=== PATIENT | female | born 1990 | race Caucasian/White ===

== ENCOUNTER 2016-04-30 23:52 | Inpatient (IN) | payer OTHER ==
[~2016-04-30] VITALS: Ht 167.6 cm; Wt 89.8 kg
[2016-05-01] MEDS ORDERED: Lactated Ringer's 1,000 ML IV PRN (19:28)
[2016-05-01] MEDS ORDERED: Hemorrhage Kit, Post Partum XX ONE (19:30)
[2016-05-01] MEDS ORDERED: diphenhydrAMINE 50 mg Capsule PO PRN (19:30)
[2016-05-01] MEDS ORDERED: Carboprost 250 mCg/mL Inj IM PRN (19:30)
[2016-05-01] MEDS ORDERED: Sodium Chloride LOK Flush 10 mL Syringe IVFLUSH PRN (19:30)
[2016-05-01] MEDS ORDERED: Oxytocin 30 Units/500 mL LR 30 UNITS in IV Premix 1 EACH IV PRN (19:30)
[2016-05-01] MEDS ORDERED: Ondansetron 2 mg/mL 2 mL Inj IVPUSH PRN (19:30)
[2016-05-01] MEDS ORDERED: Methylergonovine 0.2 mg/mL Inj IM PRN (19:30)
[2016-05-01] MEDS ORDERED: fentaNYL-PF 50 mCg/mL 2 mL Inj IVPUSH PRN (19:30)
[2016-05-01] MEDS ORDERED: Oxytocin 10 Unit/mL Inj IM PRN (19:30)
[2016-05-01] MEDS ORDERED: Penicillin G K Inj 5,000,000 UNITS in Dextrose 5% Minibag Plus 100 ML IV ONE (19:40)
--- NOTE | 2016-05-01 20:35 | PCM.HPOB ---
Subjective Date of Service: May 01, 2016 Referring Provider: Admitting Physician: Estephania Tamayo MD Primary Care Physician: Nopcp Attending Physician: Estephania Tamayo MD Chief Complaint Post Term Induction of labor History of polysubstance abuse History of Present History of Present Illness 25yo woman, , (one elective and one spontaneous ) at 41wks 4days gestation presents for elective induction of labor for post term . Review of outpatient records shows poor care. Per outpatient record: late transfer of care at 39 weeks records not obtained except of ultrasounds. Labs repeated on 04/17/2016. history of opiate abuse Currently on Subutex 8 mg by mouth 3 times a day. The patient is aware of abstinence syndrome. Urine drug screen each visit. Polysubstance abuse PNR from [place] shows +meth, cocaine, opiates on UDS hx of ecstasy, mja and other hallucinogen use Limited [facility] [place] medical record shows no visits prior to transfer, except being seen for substance abuse issues and US Tobacco use Per [facility] record Other areas indicated 04/1010 -- no custody of P1 child born April 2015 Blood type O+ RPR and HIV Non-reactive Rubella Immune GBS POSITIVE GDM negative. OB History: Obstetrical Complications: None Past Medical History Obstetrical History: None other than stated above. Gynecologic History: None other than stated above. Medical History: Polysubstance abuse Surgical History: Denies Social History: Every day smoker. Former heroin user on Subutex Hx Tobacco Use: Yes Smoking Status: Current Every Day Smoker ("down to half a packa day") Years of Smokin Hx Alcohol Use: Yes Hx Substance Use: Yes (Heroin) Past Family History Family History "mother has heart problems from smoking" Living Arrangement: Other (with SO in apartment in Thursday) Review of Systems Constitutional: Y: Chills, Dizziness, Fever ENT: Denies: Ear Pain Cardiovascular: Denies: Chest Pain Respiratory: Denies: Cough Gastrointestinal: Denies: Abdominal Pain, Heartburn, Nausea, Vomiting Genitourinary: Denies: Dysuria Musculoskeletal: Denies: Redness Skin/Breasts: Denies: Bruising, Discharge Neurological: Denies: Dizziness Psychologic: Denies: Agitation Hematologic: Denies: Adenopathy Allergy Coded Allergies: No Known Allergies (Verified Allergy, Unknown, 04/25/16) Exam Vital Signs 127/81 115 37.1 Exam 120 baseline Mild variability Variable Decels. Objective Laying in bed, NAD Constitutional: Well-developed, Well-nourished, Normal habitus HEENT: Atraumatic, PERRLA, EOMI, Scleral Anicteric Lungs: Clear to Auscultation, Normal Air Movement Heart: Regular Rate/Rhythm, Normal S1, Normal S2, No Murmurs/Rubs/Gallops Abdomen: Gravid Lymphatic: Normal: Axilla Palpation of Nodes, Neck Palpation of Nodes Extremities: Pulses Palpable x4, Warm, No Edema Neurological/Psychiatric: Alert, Oriented X3, Cooperative Neuro: Grossly Neurologically Intact, Reflexes 2+ Labs/Diagnostics Labs Laboratory Tests 72 Hours Test 05/01/16 19:20 Urine Opiates Screen Negative Urine Methadone Screen Negative Urine Barbiturates Screen Negative Urine Amphetamines Screen Negative Urine Benzodiazepines Screen Negative Urine Cocaine Metabolite Screen Negative Urine Cannabinoids Screen Negative Maternal Blood Type: O (Positive) Antibody Screen: neg Group B Strep Results: Positive Previous with GBS: Unknown Rubella: Immune Lab History: Negative for: Hx HIV, Hx Syphilis OB Intrapartum Assessment/Plan Assessment 25yo Post term multiparous woman, otherwise healthy, clean UDS on admission with history of polysubstance abuse being treated with subutex and current every day smoker. Problems: (1) Buprenorphine maintenance treatment affecting Status: Acute ICD Code: O99.320 (2) Elective induction of labor planned Status: Acute ICD Code: [id number] (3) Post term over 40 weeks Status: Acute ICD Code: O48.0 Pain Evaluation: Adequate Pain Control Intrapartum plan Epidural when desired. GBS prophylaxis with PCN Nicoderm patches Social Work consult. CPS requesting notification due to current open case. Induction of labor Close communication with neonatology. Attending Statement The patient was seen and examined together with Dr. Davies on 05/02/2016 and I agree with the history, exam and plan as outlined in the note above. Nitesh Eng DO May 01, 2016 20:35 Estephania Tamayo MD May 09, 2016 13:46
[2016-05-01 21:36] LABS: Mean Corpuscular Hemoglobin 30.4 pg (27.0-35.0); Mean Corpuscular Volume 91.8 fL (81-100)
[2016-05-01] MEDS: Lactated Ringer's 1,000 ML IV SCH (22:04)
[2016-05-01] MEDS: Buprenorphine 2 mg SL Tablet SL SCH (22:04)
[2016-05-01] MEDS: Misoprostol 25 mCg/0.25 Tablet VAGINAL SCH (23:30)
--- NOTE | 2016-05-01 23:49 | PROG NOTE ---
[address] [address] PROGRESS NOTE PATIENT: JOSE DUNN : 1990 MR#: [id number] ADMIT: 05/01/2016 JOB ID: [id number] DATE: 05/01/2016. The patient was comfortable. Admitted by Dr. Tamayo for induction of labor due to post-dates at 40 weeks plus . Her due date is April 20, 2016, this makes her 41 weeks and 4 days today. Vital signs are 115/68 for blood pressure, respirations are 16, pulse is 90, temperature 36.8 degrees centigrade. heart tracing is showing baseline of 120 beats per minute, positive accelerations, no decelerations, moderate variability, reactive tracing. Patient consented for cervical ripening balloon. The balloon was inserted; 80 cc of normal saline injected in the uterine balloon, 80 cc of normal saline injected in the vaginal balloon. Patient tolerated the insertion well. Cervical exam before insertion showed 2 cm dilated, cervix 50% effaced, high presenting part, posterior cervix, medium consistency, with a Almonte score of 3. PLAN: 1. Cervical ripening balloon for 12 hours or until the balloon falls out, whichever is earlier. Will follow with a cervical exam and possibly Pitocin. 2. GBS cultures positive. Start GBS prophylaxis with active labor or spontaneous rupture of membranes. The above discussed with the patient who agreed to the plan. KALYAN
[2016-05-02] MEDS: Lactated Ringer's 1,000 ML IV SCH ×5 (02:20→22:18)
[2016-05-02] MEDS: Buprenorphine 2 mg SL Tablet SL SCH ×3 (06:33→22:22)
[2016-05-02] MEDS ORDERED: Oxytocin 30 Units/500 mL LR 30 UNITS in IV Premix 1 EACH IV PRN (08:00)
--- NOTE | 2016-05-02 08:00 | PCM.PNOBIP ---
Subjective Date of Service May 02, 2016 Delivery plan: Spontaneous Vaginal Delivery Visit History Patient presents for induction of labor for postterm , she is currently at 41 weeks and 5 days. She is undergoing cervical ripening and balloon has been placed with 80 mL of fluid at 11 PM last night. Subjective Patient has no complaints as of this morning, she has been able to rest well, was able to sleep overnight, states she has been up and about the room using the bathroom. She is having infrequent contractions, denies any leakage of fluid or bleeding from her vagina. Pain Management: PO pain meds Gastrointestinal: Good Appetite, No N/V, Passing Flatus Activity: Ambulating Independently Group B Strep Results: Positive Rubella: Immune Blood Type: O (Positive) RH Type: Positive Labs Laboratory Tests 05/01/16 21:20: White Blood Count 8.4, Red Blood Count 3.55, Hemoglobin 10.8, Hematocrit 32.6, Mean Corpuscular Volume 91.8, Mean Corpuscular Hemoglobin 30.4, Mean Corpuscular Hemoglobin Concent 33.1, Red Cell Distribution Width 13.1, Platelet Count 173 Exam Vital Signs Vital Signs 106/51 72 beats per minute 18 respirations per minute 36.6C Vital Signs: VS reviewed, stable Heart Tracings Heart Tones Baseline 125 bpm Heart Rate Variability: Moderate Heart Rate Accelleration: Present Heart Rate Deceleration: Absent Heart Rate Category: I Tocometry/IUPC Contraction frequency in minutes: MVUs: Sterile Vaginal Exam Cervical Dilation: 2 cms Cervical Effacement: 50 % Station: -3 Exam Abdomen: Fundus firm, Abdomen non-tender Extremities: No cords, Normal pulses, No tenderness/swelling Lungs: Clear to Auscultation, Normal Air Movement Heart: Regular Rate/Rhythm, Normal S1, Normal S2, No Murmurs/Rubs/Gallops General: Alert, Oriented X3, Cooperative OB Intrapartum Assessment/Plan Assessment 25yo multiparous women at post term, undergoing induction of labor, doing well. FHT is catagory one, reassuring. Problems: (1) Buprenorphine maintenance treatment affecting Status: Acute ICD Code: O99.320 (2) Elective induction of labor planned Status: Acute ICD Code: [id number] (3) Post term over 40 weeks Status: Acute ICD Code: O48.0 Intrapartum plan: Continue expected management (Pitocin started for augmentation. ) Intrapartum Pain Management: May have epidural when desired Pain Evaluation: Adequate Pain Control Intrapartum Antibiotics: Penicilln (Begin At Rupture of Membranes.) Attending Statement Patient seen and examined today, initial plan was pitocin per protocol after removal of cervical ripening balloon, called at 11 that balloon had fallen out and pitocin was started per protocol with penicillin but on check two hours later she was still 2-3/50/high given this there was some question to appropriate balloon placement. Given her continued unfavorable bishops score, pitocin was then turned off and cytotec was placed per protocol. Will plan to continue with cytotec throughout the afternoon and evening, plan to start pitocin when favorable. Nitesh Eng DO May 02, 2016 07:57 Gladys Mcclendon MD May 02, 2016 17:50
[2016-05-02] MEDS ORDERED: Penicillin G K Inj 5,000,000 UNITS in Dextrose 5% Minibag Plus 100 ML IV ONE (09:15)
--- NOTE | 2016-05-02 10:36 | NUR ---
Faxed clinicals to [facility] REF # [id number]
[2016-05-02] MEDS: Misoprostol 25 mCg/0.25 Tablet VAGINAL SCH (13:02)
[2016-05-02] MEDS: Penicillin G K Inj 3,000,000 UNITS in IV Premix 1 EACH IV SCH ×4 (13:42→22:21)
[2016-05-02] MEDS ORDERED: fentaNYL 2 mCg/mL-Bupivicaine 0.125% 100 mL Premix EPIDURAL ONE (21:13)
[2016-05-02] MEDS ORDERED: Lactated Ringer's 500 ML IV ONE (21:59)
[2016-05-02] MEDS ORDERED: Lactated Ringer's 1,000 ML IV SCH (21:59)
[2016-05-02] MEDS ORDERED: Ondansetron 2 mg/mL 2 mL Inj IVPUSH PRN (22:00)
[2016-05-02] MEDS ORDERED: fentaNYL 2 mCg/mL-Bupiv 0.125% 100 ML EPIDURAL SCH (22:00)
[2016-05-02] MEDS ORDERED: EPHEDrine Sulfate 50 mg/mL Inj IVPUSH PRN (22:00)
[2016-05-02] MEDS ORDERED: Atropine 1 mg/10 mL (Code) Syringe IVPUSH PRN (22:00)
--- NOTE | 2016-05-02 22:01 | PCM.HPANE ---
Patient Data Surgeon Admitting Provider:Estephania Tamayo MD Attending Provider:Estephania Tamayo MD Primary Care Physician:Ghulam Other Provider:Darion Ferguson Anesthesia Reason for Visit Induction INDUCTION Ht/WT & BMI Body Mass Index Allergies Coded Allergies: No Known Allergies (Verified Allergy, Unknown, 04/25/16) History Hx Alcohol Use: YesHx Substance Use: Yes (Heroin) Smoking Status: Current Every Day Smoker ("down to half a packa day") Stop/Bang Risk Assessment Category Category 1A: Patient has history of documented sleep apnea, and HAS NOT received any narcotic, sedative or anesthesia administration during this stay. Category 1B: Patient has history of documented sleep apnea, and HAS received any narcotic , sedative or anesthesia administration during this stay Category 2: Patient has SUSPECTED Obstructive Sleep Apnea, and HAS received any narcotic , sedative or anesthesia administration during this stay. Category 3: Patient has SUSPECTED Obstructive Sleep Apnea and HAS NOT received narcotic, sedative or anesthesia administration during this stay. Category 4: Outpatient in Procedural Areas with known sleep apnea or who screen positive for High Risk via the STOP/BANG questionnaire. Exam Exam General Appearance: Alert, Oriented X3, Cooperative, Severe Distress (labor pain) HEENT/AIRWAY: MP 2, Neck Movement (FROM), Mouth Opening (3 FBMO) Lungs: Normal Air Movement Heart: Regular Rate/Rhythm Meds/Labs/Diagnostics Admission Meds Current Medications Penicillin G Potassium/ Dextrose/Premix (Pfizerpen Inj/ IV Premix) 50 ml @ 100 mls/hr Q4 IV Last administered on 05/02/16 17:48; Start 05/02/16 at 00:30 Nicotine 1 patch 1 patch DAILY TOPICAL Last administered on 05/02/16 09:41; Start 05/02/16 at 08:30 Lactated Ringer's 1,000 ml @ 125 mls/hr Q8H IV Last administered on 05/02/16 09:59; Start 05/02/16 at 07:57 Penicillin G Potassium/ Dextrose/Water (Pfizerpen Inj/ D5W Minibag Plus) 100 ml @ 240 mls/hr ONCE ONCE IV Last administered on 05/02/16 09:41; Start 05/02/16 at 09:15; Stop 05/02/16 at 09:39; Status DC Labs Test 05/01/16 19:20 05/01/16 21:20 Urine Opiates Screen Negative Urine Methadone Screen Negative Urine Barbiturates Screen Negative Urine Amphetamines Screen Negative Urine Benzodiazepines Screen Negative Urine Cocaine Metabolite Screen Negative Urine Cannabinoids Screen Negative White Blood Count 8.4th/mm3 (3.8-10.1) Red Blood Count 3.55mil/mm3 (3.90-5.20) Hemoglobin 10.8g/dL (12.0-15.6) Hematocrit 32.6% (35.0-46.0) Mean Corpuscular Volume 91.8fL (81-100) Mean Corpuscular Hemoglobin 30.4pg (27.0-35.0) Mean Corpuscular Hemoglobin Concent 33.1% (32.0-37.0) Red Cell Distribution Width 13.1% (12.3-15.4) Platelet Count 173bil/L (150-400) Plan Impression Patient chart reviewed, patient interviewed and anesthestic plan with risks, benefits, and alternatives discussed, and informed consent obtained. NPO Status: L&D protocol ASA Physical Status: ASA2 Mod Systemic Disease Anesthetic Plan: Epidural Bene/Risks/Altern/Consents: Yes HP Complete Prior to Induction: Yes Jostin Salomon MD May 02, 2016 21:12
[2016-05-03] MEDS: Penicillin G K Inj 3,000,000 UNITS in IV Premix 1 EACH IV SCH (02:51)
--- NOTE | 2016-05-03 05:29 | PCM.ANEP1 ---
Post Anesthesia Phase 1 PACU Phase 1 Assessment Date of Service: May 01, 2016 Anesthetic Administered: Epidural Level of Alertness: Awake, talking VALDEZ's with Equal Strength: Yes (epidural steadily wearing off) Pain: No Nausea or Vomiting: No Oxygen Delivery: Room Air Lungs: Normal Air Movement Dermatome Level: Full Sensation Jostin Salomon MD May 03, 2016 05:29
--- NOTE | 2016-05-03 05:29 | PCM.ANEP2 ---
Post Anesthesia Evaluation ASA/CMS Post Anesthesia VS in Patient's Normal Range?: Yes Resp Stable; Airway Patent?: Yes CV Function & Hydration Stable: Yes Mental Status Recovered?: Yes Pain control Satisfactory?: Yes N/V Control Satisfactory?: Yes Jostin Salomon MD May 03, 2016 05:29
[2016-05-03] MEDS ORDERED: Lactated Ringer's 1,000 ML IV SCH (05:36)
[2016-05-03] MEDS ORDERED: Witch Hazel-Glycerin Pads TOPICAL PRN (05:40)
[2016-05-03] MEDS ORDERED: LANOlin HPA 7 Gm Ointment TOPICAL PRN (05:40)
[2016-05-03] MEDS ORDERED: Influenza (Adult) Vaccine 0.5 mL Syringe IM ONE (05:40)
[2016-05-03] MEDS ORDERED: TdaP Vaccine 0.5 mL Inj IM ONE (05:40)
[2016-05-03] MEDS ORDERED: Oxytocin 30 Units/500 mL LR 30 UNITS in IV Premix 1 EACH IV PRN (05:40)
[2016-05-03] MEDS ORDERED: Carboprost 250 mCg/mL Inj IM PRN (05:40)
[2016-05-03] MEDS ORDERED: Hemorrhage Kit, Post Partum XX ONE (05:40)
[2016-05-03] MEDS ORDERED: Benzocaine (Dermoplast) 20% 60 Gm Spray TOPICAL PRN (05:40)
[2016-05-03] MEDS ORDERED: Methylergonovine 0.2 mg/mL Inj IM PRN (05:40)
[2016-05-03] MEDS ORDERED: Oxytocin 10 Unit/mL Inj IM PRN (05:40)
--- NOTE | 2016-05-03 06:01 | OP ---
[address] [address] OPERATIVE REPORT PATIENT: JOSE DUNN : 1990 MR#: [id number] ADMIT: 05/01/2016 JOB ID: [id number] DATE OF SURGERY: 05/03/2016 SURGEON: Gladys Mcclendon MD. PREOPERATIVE DIAGNOSIS(ES): POSTOPERATIVE DIAGNOSIS(ES): This is a 25-year-old, G5, P 1-0-3-1 female who presented at 41 plus four weeks gestational age for a planned induction of labor due to postdates. Her was complicated by very limited care, establishing care with an OB provider at around 39 weeks of , as well as polysubstance abuse including cocaine, methamphetamine and heroin, on Suboxone therapy at 8 mg t.i.d. She also was complicated by tobacco use. Her due date was April 20, 2016. She was seen in our clinic for one record after transfer from [facility], where she had been seen only for her Subutex throughout her and with limited ultrasounds. She also did not have custody of her older child. After discussing with her in clinic, the decision was made to proceed with an induction for postdates. The patient was admitted on May 01, 2016, for this purpose. She was initially to receive Cytotec but instead a cervical ripening balloon was placed overnight on the evening of the . Her cervical ripening balloon fell out the morning of the . However, her cervix was noted to be only 2-3 cm dilated at this time, so it was thought INCOMPLETE DICTATION: Dictation ends here.
[2016-05-03] MEDS: Ascorbic Acid 500 mg Tablet PO SCH ×2 (07:10→18:47)
[2016-05-03] MEDS: Buprenorphine 2 mg SL Tablet SL SCH ×4 (07:10→23:17)
--- NOTE | 2016-05-03 09:18 | OP ---
[address] [address] OPERATIVE REPORT PATIENT: JOSE DUNN : 1990 MR#: [id number] ADMIT: 05/01/2016 JOB ID: [id number] DATE OF SURGERY: 05/03/2016 PREOPERATIVE DIAGNOSIS(ES): 1. A 41 plus six week intrauterine , here for induction of labor for postdates. 2. Polysubstance abuse including cocaine, heroin, methamphetamine, opiates throughout the . 3. Tobacco use. 4. Chronic Subutex administration with her care provider on [facility]. 5. Limited care, with entry to care at 39 weeks. 6. No custody of older child. POSTOPERATIVE DIAGNOSIS(ES): 1. A 41 plus six week intrauterine , here for induction of labor for postdates. 2. Polysubstance abuse including cocaine, heroin, methamphetamine, opiates throughout the . 3. Tobacco use. 4. Chronic Subutex administration with her care provider on [facility]. 5. Limited care, with entry to care at 39 weeks. 6. No custody of older child. PROCEDURE PERFORMED: Spontaneous vaginal delivery of a liveborn male infant, born at 0428 hours on May 03, 2018, weighing 3922 g or 8 pounds 10 ounces, with Apgars of 8 at one minute and 9 at five minutes. SURGEON: Gladys Mcclendon MD. ANESTHESIA: Epidural. ESTIMATED BLOOD LOSS: 400 cc. FLUID REPLACEMENT: Crystalloid in labor. FINDINGS: Liveborn male infant with spontaneous cry and spontaneous movement of all four extremities. COMPLICATIONS: None apparent. INDICATIONS: This is a 25-year-old, G5, P 1-0-3-1 female who is presenting at 41 plus four weeks gestation for an induction of labor for postdates. Her was complicated as noted above with polysubstance abuse with positive drug screen for cocaine, opiates and amphetamines, as well as heroin in the . Currently in a drug treatment clinic, on Subutex 8 mg 3 times daily, as well as tobacco use and limited care. Her EDC was April 20, 2016, based on ultrasounds, which she did get at appropriate intervals during the . laboratory data showed blood type O positive, antibody screen negative, rubella immune, RPR nonreactive, hep B surface antigen negative and group B strep positive. She was admitted for the induction for postdates on the evening of the . She was initially planning to get Cytotec. However, due to a low baseline and occasional mild variable decelerations, a Bright balloon was placed instead. On the morning of the , this did fall out. However, she was noted to still be approximately 2-3 cm dilated, and there was concern that the balloon was not appropriately placed. Following this, she did get a single dose of Cytotec and then began cipriano on her own. She spontaneously ruptured on her own at around 7 p.m. on the . Penicillin was started for her GBS-positive status after the cervical ripening balloon fell out. She then progressed on her own to complete in the respiratory director hours of May 03. DESCRIPTION OF PROCEDURE: The patient was noted to be complete and pushing, so she was placed in dorsal lithotomy position, prepped and draped in the usual sterile fashion for delivery. She pushed and head delivered spontaneously in the ARUN position over an intact perineum. Nuchal cord was checked and none was noted. There was some resistance delivering the anterior shoulder, so the patient was placed in a supine position and Catherine positioning. The anterior shoulder then delivered easily, followed by the posterior shoulder, and the remainder of the was then easily delivered. The cord was then clamped and cut, and the was passed to the polish maker who was in attendance. Cord blood was then obtained. Placenta delivered intact spontaneously and passed off the table. Examination of the vaginal vault revealed bilateral labial lacerations, which were repaired with 4-0 Vicryl. The right was repaired in a running, nonlocking fashion. The left was repaired with three interrupted stitches. She also had a mucosal abrasion along the perineum which was repaired with a single [id number] stitch of 4-0 Vicryl. Her uterus was firm on manual examination. She tolerated this procedure well. Recovered on labor and delivery with her . All sponge, needle, instrument counts were correct.
[2016-05-04 06:32] LABS: Mean Corpuscular Volume 94.1 fL (81-100)
[2016-05-04] MEDS: Ascorbic Acid 500 mg Tablet PO SCH (07:57)
[2016-05-04] MEDS: Buprenorphine 2 mg SL Tablet SL SCH (07:57)
--- NOTE | 2016-05-04 10:39 | PCM.DIOB ---
Obstetrical Disch Instruction Dates of Hospitalization Date of Hospital Admission May 01, 2016 at 18:35 Providers Admitting Physician: Estephania Tamayo MD Primary Care Physician: Nopcp Attending Physician: Estephania Tamayo MD Discharge Diagnosis Discharge Diagnosis s/p spontaneous vaginal delivery on 05/03/16 Problems: (1) Buprenorphine maintenance treatment affecting Plan: Continue suboxone therapy as an outpatient 8mg PO TID Status: Acute ICD Code: O99.320 (2) Elective induction of labor planned Plan: Doing well . Return in 6 weeks for routine check Status: Acute ICD Code: [id number] (3) Post term over 40 weeks Status: Acute ICD Code: O48.0 Diet Discharge Diet: No restrictions Activity Discharge Activity-General: Pelvic Rest for 6 weeks, Be up and about, Balance rest and activity, Activity as pain allows, Activity as energy allows Dressing and Incisional Care Hygiene: May shower, Perineal care, Sitz bath, Dermoplast spray, Witch Jessi pads Additional Instructions Discharge Instructions Please call with any signs or symptoms of infection including severe pain, temperature greater than 100.5 degrees, heavy vaginal bleeding filling more than one pad per hour or malodorous vaginal discharge. Return in 6 weeks for a visit. Remain on pelvic rest until that time. Follow Up Plan Follow-up appointment: Weeks (6) Call your provider for: Fever or Chills, Shortness of breath, Heavy vaginal bleeding, Red painful breasts Gladys Mcclendon MD May 04, 2016 10:39
[2016-05-04] MEDS ORDERED: IBUP800T28 PO (10:41)
[2016-05-04] MEDS ORDERED: DOCU-41 PO (10:41)
[2016-05-04 11:27] VITALS: BP 104/58; PULSE 64; RESP 15
--- NOTE | 2016-05-04 15:59 | DIS ---
[address] [address] DISCHARGE SUMMARY PATIENT: JOSE DUNN : 1990 MR#: [id number] ADMIT: 05/01/2016 JOB ID: [id number] DIS: 05/04/2016 ADMISSION DIAGNOSES: 1. A 41 plus 5 week intrauterine here for an induction of labor for post dates. 2. Polysubstance abuse including cocaine, heroin, methamphetamine, opioids throughout the . 3. Tobacco use. 4. Chronic opioid therapy on Subutex 8 mg t.i.d. 5. Limited care with late entry at 39 weeks. 6. No custody of her older child. DISCHARGE DIAGNOSIS: 1. A 41 plus 5 week intrauterine here for an induction of labor for post dates. 2. Polysubstance abuse including cocaine, heroin, methamphetamine, opioids throughout the . 3. Tobacco use. 4. Chronic opioid therapy on Subutex 8 mg t.i.d. 5. Limited care with late entry at 39 weeks. 6. No custody of her older child. PROCEDURES PERFORMED: Spontaneous vaginal delivery of a liveborn male , born at 4:28 hours on May 03, 2018, weighing 3922 g or 8 pounds 10 ounces. Apgars 8 at one minute, 9 at five minutes. REASON FOR ADMISSION: A 25-year-old, G5, P 1-0-3-1 female who presented at 41 plus 4 weeks gestational age for induction of labor for post dates. was complicated as noted above with polysubstance abuse. Positive drug screen for cocaine, opioids and amphetamines as well as heroin use in the . She was in a drug treatment clinic on [facility] on Subutex 8 mg t.i.d. She was also complicated by tobacco use and late entry to care at 39 weeks. Her EDC was April 20, 2016. After establishing care in our clinic at 39 weeks, the election was scheduled due to her late gestational age. LABORATORY DATA: O-positive, antibody screen negative, rubella immune, RPR nonreactive, hep B surface antigen negative, GBS positive. HOSPITAL COURSE: The patient was admitted on the evening of for a planned induction of labor. A cervical ripening balloon was placed on the morning of the . the cervical ripening balloon fell out and Pitocin was started per protocol. After checking her shortly after this it was noted that her cervix was still not dilated and so the Pitocin was then turned off. She received Cytotec. Penicillin was started for her GBS positive status. She received a single dose of Cytotec and then began cipriano on her own following this. Her contractions increased in frequency and she had spontaneously ruptured her membranes on the evening of the . 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 Please see the operative report for full details regarding this. she did very well. By day number one she was tolerating a regular diet, voiding and ambulating well on her own, and her pain was well controlled. Her baby was monitored in the NICU for abstinence syndrome and CPS was involved given her history of drug use and no care with lack of custody of her older child. After discussing with her plans , she was interested in Depo-Provera for contraception. She did not receive a Tdap or flu vaccine in her due to her minimal care and this was given to her on day number zero. PHYSICAL EXAMINATION ON THE DAY OF DISCHARGE: On the day of discharge, her blood pressure was 104/58, heart rate was 64, respiratory rate 15, temperature is 97.5. General: She is awake, alert, oriented, no acute distress. Lying comfortable in bed. Her abdomen is soft, appropriately tender, nondistended, with her uterine fundus firm below her umbilicus. Her extremities show no tenderness or edema. INSTRUCTIONS AT DISCHARGE: The patient is advised to remain on pelvic rest for six weeks including no tampons, douching, or intercourse. She was asked to call with any signs or symptoms of infection including fever greater than 100.5 degrees, severe pain, malodorous vaginal discharge or bleeding greater than one pad per hour. MEDICATIONS AT DISCHARGE: Included: 1. Continuation of Subutex 8 mg p.o. t.i.d. 2. She was also given ibuprofen 800 mg p.o. t.i.d. 3. Asked to continue her vitamins. She was asked to follow up in six weeks for visit and to discuss contraception at that time. Her vaccinations are otherwise up to date by the time of discharge. She is O-positive, rubella immune. All questions and concerns of the patient were answered. She was deemed stable for discharge on day number one, to boarder status with a decision from CPS pending until tomorrow morning regarding the infant's disposition plan. KALYAN
--- NOTE | 2016-05-05 12:34 | PATH ---
SURGICAL PATHOLOGY Attending Physician:Gladys Mcclendon, CASE STATUS: Signed Out PATIENT NAME: JOSE DUNN PID: [id number] : 1990 DATE COLLECTED:05/03/2016 17:35 SPECIMEN: Placenta CLINICAL HISTORY: NO CARE, MATERNAL DRUG USE 1). PLACENTA FINAL DIAGNOSIS: Placenta (502 grams): Mature placenta with a single infarct. Negative for chorioamnionitis and funisitis. ICD10: O43.819 GROSS DESCRIPTION: The specimen is received in formalin, labeled with the patient's name and consists of an intact placenta and includes placental disc (502 g, 27.3 x 21.7 x 1.8 cm), umbilical cord (length-2.7 cm, diameter-1.8 x 0.5 cm) and membranes. The membranes are ruptured 6.8 cm from the free edge of the placenta and are booker and translucent. The umbilical cord is attached 6.8 cm from the edge of the placenta and contains 3 vessels. The surface is smooth and shiny, focally pale surrounding the umbilical cord attachment site, and partially covered in green-yellow mucoid material. The maternal surface is guerrero with normal cotyledon formation. The placental disc is spongy with no hematomas, nodules, masses, or lesions. Section code: (A) edge of placenta with membranes, umbilical cord; (B-H) placenta, 7 full thickness sections. 05/03/16 ICD-9 CODES: CPT CODES: 1: 51317 Electronically Signed Out Yoan Black MD [facility] Pathology [facility] [address], [place] [address] Technical component performed at [facility], [address], [place], [address]
--- NOTE | 2016-05-05 12:53 | NUR ---
Giovana Jostin Franz, baby Boy Estefania Franz. Reason for SW consult: Giovana Franz delivered baby Boy Estefania Franz on 05/03/16. Family has open CPS case - They have a 13 month old who is in family custody with CPS involvement. CPS worker is Lili Husain [phone] in [facility]. Family has been working on reunification - goal is to have 13 month old return to parents care in the next few months. Older child - is currently placed with FOB's mother and they have frequent visits and parenting. CPS was involved initially because both parents were homeless, living out of a car and using heroin daily. Both parents are now clean - MOB UDS was negative at delivery. 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 Source of Income: FOB's employment. Disposition: CPS has identified that there is a court hearing scheduled for May 07 and CPS will provide update on disposition after hearing. Baby is to remain in the hospital until Thursday and Lili Husain will call unit with update. Parents are cooperative and understanding of process. AUBRIE Ya
== END 2016-05-04 13:15 | disposition home or self-care (01) | DRG 775 ==
LOC: FBC 05-01 18:35
PROVIDERS: ADMIT Obstetrics & Gynecology; ATTEND Obstetrics & Gynecology
PROC: 3E0P7GC Introduction of Other Therapeutic Substance into Female Reproductive, Via Natural or Artificial Opening (ICD-10-PCS; 2016-05-02)
PROC: 10H07YZ Insertion of Other Device into Products of Conception, Via Natural or Artificial Opening (ICD-10-PCS; 2016-05-02)
PROC: 0HQ9XZZ Repair Perineum Skin, External Approach (ICD-10-PCS; principal; 2016-05-03)
PROC: 10E0XZZ Delivery of Products of Conception, External Approach (ICD-10-PCS; 2016-05-03)
DX: O70.0 First degree perineal laceration during delivery (principal); F11.20 Opioid dependence, uncomplicated; O99.324 Drug use complicating childbirth; O48.0 Post-term pregnancy; O99.824 Streptococcus B carrier state complicating childbirth; O75.89 Other specified complications of labor and delivery; O76 Abnormality in fetal heart rate and rhythm complicating labor and delivery; F15.10 Other stimulant abuse, uncomplicated; F14.10 Cocaine abuse, uncomplicated; F17.200 Nicotine dependence, unspecified, uncomplicated; Z3A.41 41 weeks gestation of pregnancy; O99.334 Smoking (tobacco) complicating childbirth; Z79.899 Other long term (current) drug therapy; Z37.0 Single live birth